=== PATIENT | female | born 2000 | race Caucasian/White ===

== ENCOUNTER 2025-02-14 16:41 | Outpatient (REF) | payer OTHER, SELFPAY ==
[2025-02-14 21:11] LABS: TSH (W/Ref FT4) 0.72 uIU/mL (0.36-3.74)
[2025-02-17 10:58] LABS: Lyme Ab w Rflx to Lyme Confirm Negative (Negative)
== END 2025-02-14 16:42 | disposition home or self-care (01) ==
LOC: LBN 16:41
PROVIDERS: Visit Provider Physician Assistant Medical
DX: R51.9 Headache, unspecified (principal)
CPT/HCPCS: 84443; 86618